=== PATIENT | female | born 1955 | race African-American/Black ===

== ENCOUNTER → 2020-02-21 15:55 | Outpatient (CLI) | payer BC, MEDICARE, SELFPAY ==
--- NOTE | ~2020-02-21 | MR_ITS ---
EXAMINATION: MR pelvis wo con, MR hip LT wo con DATE: 02/21/2020 INDICATION: Sciatic nerve lesion with constant left-sided sciatica with pain radiating to the left lo wer limb. TECHNIQUE: 1. Magnetic resonance imaging (MRI) of the pelvis was performed without intravenous contrast. Sequenc es included full-field axial, sagittal and coronal T1-weighted FSE and T2-weighted FS FSE. 2. MRI of the left hip was performed without intravenous contrast. Sequences included full-field axia l thin pelvis PD-weighted FS FSE and T1-weighted FSE, coronal of the pelvis with PD-weighted FS FSE, small field of view of the affected hip with axial PD-weighted FS FSE, sagittal PD-weighted FS FSE a nd coronal PD weighted FS FSE. Additional radial T1-weighted FGR oriented orthogonal to the acetabula r rim were obtained for evaluation of the labrum. COMPARISON: None FINDINGS: Bones/labrum/cartilage: Mild lumbar levocurvature with mild to moderate spondylosis including mild disc height loss and moder ate to severe bilateral facet osteoarthritis at L4-5 and L5-S1. Mild disc bulge at L4-L5 and disc ext rusion at L5-S1 which appears eccentric to left with moderate left neural foraminal stenosis. Mild ne ural foraminal stenosis on the right at L5-S1 and bilaterally at L4-L5. Normal alignment at both hips . No fracture, avascular necrosis or pathologic marrow replacing process. Mild left hip osteoarthriti s. Focal thickening with increased signal consistent with denervation or tear located slightly specialist employee labor relations ior to the 12:00 position of the superolateral left labrum. Fluid: Symmetric physiologic amount of fluid within both hip joints. Soft tissues: Normal and symmetric muscle bulk and signal in the pelvis and visualized proximal thighs. The right h amstring and bilateral iliopsoas and gluteal tendons are normal. Mild tendinopathy without discrete t ear at the left ischial tuberosity origin of the proximal left hamstring tendons with underlying incr eased fluid signal consistent with mild left ischial bursitis. Limited evaluation of visceral organs of the pelvis is unremarkable. No pathologically enlarged pelvic/inguinal lymphadenopathy. There are several foci of susceptibility artifact in the subcutaneous fat lateral to the anterior margin of the anterior left iliac spine. The bilateral lumbosacral plexus and visualized portions of the sciatic n erves appear symmetric with no focal thickening or abnormal signal. No abnormal masses, fluid collect ions or other impinging lesions along the sciatic nerves. IMPRESSION: 1. Mild left hip osteoarthritis with tear versus degeneration at the superolateral left acetabular [place]. 2. Left ischial bursitis with mild tendinopathy without discrete tear at the proximal left hamstring tendons. 3. Normal appearance to the bilateral lumbosacral plexus and sciatic nerves with no evident impinging lesions. 4. Mild to moderate lower lumbar spondylosis including annular fissure at L5-S1 contributing to moder ate neural foraminal stenosis on the left. If clinically indicated could consider dedicated lumbar sp ine MR with smaller [id number] also including more of the lumbar spine for more comprehensive and definitive determination. Reviewed, dictated and finalized at location A. IMPRESSION: 1. Mild left hip osteoarthritis with tear versus degeneration at the superolate ral left acetabular labrum. 2. Left ischial bursitis with mild tendinopathy without discrete tear at the pr oximal left hamstring tendons. 3. Normal appearance to the bilateral lumbosacral plexus and sciatic nerves wit h no evident impinging lesions. 4. Mild to moderate lower lumbar spondylosis including annular fissure at L5-S1 contributing to moderate neural foraminal stenosis on the lef
== END ==
PROVIDERS: PCP Internal Medicine; Visit Provider Internal Medicine
DX: G57.02 Lesion of sciatic nerve, left lower limb (principal); M47.896 Other spondylosis, lumbar region; M16.12 Unilateral primary osteoarthritis, left hip
CPT/HCPCS: 72195; 73721

== ENCOUNTER → 2020-08-07 14:51 | Outpatient (CLI) | payer BC, MEDICARE, SELFPAY ==
--- NOTE | ~2020-08-07 | MR_ITS ---
EXAMINATION: MR lumbar spine wo [facility] EXAM DATE: 08/07/2020 15:30 INDICATION: Low back and left leg pain. TECHNIQUE: Multi-sequential, multiplanar MR images of the lumbar spine were obtained without contrast . Sagittal T1, T2, T2 fat saturation images. Axial T2 weighted images. There is no prior study for comparison. FINDINGS: There is mild to moderate loss of the L2-3 104-5 disc height, mild at L5-S1. The vertebral body and disc heights are otherwise well maintained. The vertebral bodies are aligned in the AP dimen christal. The conus medullaris terminates at the L1/2 level and has normal signal intensity and morpholog y. There are scattered focal signal abnormalities consistent with hemangiomata, otherwise without fo renetta suspicious marrow signal abnormalities. Paraspinal soft tissue is unremarkable. Level by level evaluation: T11-12: Disc does not extend beyond the endplate margin. Facet arthropathy: Mild to moderate bilateral. Neural foraminal stenosis: No stenosis. Central canal stenosis: No stenosis. T12-L1: Disc does not extend beyond the endplate margin. Facet arthropathy: Mild bilateral. Neural foraminal stenosis: No stenosis. Central canal stenosis: No stenosis. L1-L2: Disc does not extend beyond the endplate margin. Facet arthropathy: Mild to moderate bilateral. Neural foraminal stenosis: No stenosis. Central canal stenosis: No stenosis. L2-L3: There is a mild diffuse disc bulge. Facet arthropathy: Moderate bilateral.. Neural foraminal stenosis: Mild right. Central canal stenosis: Mild. L3-L4: There is a minimal diffuse disc bulge. Facet arthropathy: Moderate bilateral. Neural foraminal stenosis: No stenosis. Central canal stenosis: No stenosis. L4-L5: There is a mild to moderate diffuse disc bulge. Facet arthropathy: Moderate to severe bilateral. Neural foraminal stenosis: Mild to moderate bilateral. Central canal stenosis: Mild to moderate. L5-S1: There is a mild to moderate diffuse disc bulge. Facet arthropathy: Moderate bilateral. Neural foraminal stenosis: Moderate left, mild to moderate right. Central canal stenosis: Mild. IMPRESSION: 1. L5-S1 moderate left neural foraminal stenosis. 2. Less spondylosis other levels. Reviewed, dictated and finalized at location A.
== END ==
PROVIDERS: Visit Provider Nurse Practitioner Family
DX: M54.5 Low back pain (principal)
CPT/HCPCS: 72148

== ENCOUNTER → 2021-06-26 09:15 | Outpatient (CLI) | payer BC, MEDICARE, SELFPAY ==
--- NOTE | ~2021-06-26 | MM_ITS ---
EXAMINATION: MM screening [facility] BI w jessa HISTORY: Screening mammogram TECHNIQUE: Craniocaudal and mediolateral oblique 3-D tomosynthesis images were obtained and synthetic 2-D images were generated. CAD analysis was submitted and interpreted. COMPARISON: 03/07/2019, 02/16/2019, 07/25/2016 BREAST PARENCHYMAL COMPOSITION: The breasts are heterogeneously dense, which may obscure small masses . FINDINGS: Scattered benign-appearing calcifications are present. Waxing and waning bilateral breast m asses are again noted, consistent with benign findings. There is no evidence of suspicious mass, calc ification, or architectural distortion to suggest malignancy in either breast. There has been no susp icious interval change. IMPRESSION: 1. No mammographic evidence of malignancy. 2. Recommend routine screening mammography in one year. BI-RADS Category 2: Benign finding(s). Reviewed, dictated and finalized at location A. R TOOL REPAIR TECHNICIAN
== END ==
PROVIDERS: Visit Provider Internal Medicine
DX: Z12.31 Encounter for screening mammogram for malignant neoplasm of breast (principal)
CPT/HCPCS: 77063; 77067

== ENCOUNTER → 2022-08-23 15:01 | Outpatient (CLI) | payer BC, MEDICARE, SELFPAY ==
--- NOTE | ~2022-08-23 | MR_ITS ---
EXAMINATION: MR cervical spine wo con DATE: 08/23/2022 16:01 INDICATION: Neck pain. TECHNIQUE: Magnetic resonance imaging (MRI) of the cervical spine was performed without intravenous c ontrast. COMPARISON: None FINDINGS: There is 11 degrees levoscoliosis of cervicothoracic spine. There is 2 mm anterolisthesis o f C3 and C4 and C7 on T1. There is interbody fusion from C4 to T1. There is an anterior plate with sc rews from C6 to T1. Vertebral body heights are normal. There is mildly decreased disc height at C3-C4 . The spinal cord signal intensity is normal. The following disc levels are specifically discussed: C2-C3: The disc does not extend beyond the endplate margin. There is mild left uncovertebral joint os teoarthritis. There is moderate right and severe left facet joint osteoarthritis. There is mild left neural foraminal stenosis. There is no central canal stenosis. C3-C4: The disc is bulging. There is severe bilateral uncovertebral joint osteoarthritis. There is [place] bilateral facet joint osteoarthritis. There is mild bilateral neural foraminal stenosis. There i s moderate central canal stenosis with ventral and dorsal indentation of the spinal cord. C4-C5: There is no uncovertebral joint hypertrophy. There is no facet joint hypertrophy. There is no neural foraminal stenosis. There is no central canal stenosis. C5-C6: There is no uncovertebral joint hypertrophy. There is no facet joint hypertrophy. There is no neural foraminal stenosis. There is no central canal stenosis. C6-C7: There is no uncovertebral joint hypertrophy. There is no facet joint hypertrophy. There is no neural foraminal stenosis. There is no central canal stenosis. C7-T1: There is no uncovertebral joint hypertrophy. There is mild bilateral facet joint hypertrophy. There is mild bilateral neural foraminal stenosis. There is no central canal stenosis. IMPRESSION: 1. Moderate cervical spondylosis. 2. Anterior fusion from C4 to T1. Reviewed, dictated and finalized at location A.
== END ==
PROVIDERS: PCP Nurse Practitioner Family; Visit Provider Nurse Practitioner Family
DX: M47.812 Spondylosis without myelopathy or radiculopathy, cervical region (principal); R20.0 Anesthesia of skin; Z98.1 Arthrodesis status
CPT/HCPCS: 72141